=== PATIENT | female | born 1970 | race Caucasian/White ===

== ENCOUNTER 2017-08-05 22:25 | Emergency (ER) | payer OTHER ==
[~2017-08-05] VITALS: Ht 162.6 cm; Wt 110.0 kg
[~2017-08-05 22:25] MED LIST: CHOL50006 PO; FEXO180 PO; SYNT112T PO
[2017-08-05 22:32] VITALS: BP 128/79; PULSE 83; RESP 16; TEMP 98.3; O2SAT 97
[2017-08-06] MEDS ORDERED: FEXO15TA PO (00:30)
[2017-08-06] MEDS ORDERED: SYNT112T PO (00:30)
[2017-08-06] MEDS ORDERED: CHOL5000 PO (00:30)
[2017-08-06] MEDS ORDERED: CYCL10TA PO (00:34)
[2017-08-06] MEDS ORDERED: DICL75TA PO (00:34)
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
[2017-08-06] MEDS ORDERED: NAPROXEN 500 MG TAB PO ONE (00:45)
[2017-08-06] MEDS ORDERED: CYCLOBENZAPRINE HCL 10 MG TAB PO ONE (00:45)
== END 2017-08-06 01:03 | disposition home or self-care (01) ==
LOC: NEPD 22:25
DX: S29.012A Strain of muscle and tendon of back wall of thorax, initial encounter (principal); V89.2XXA Person injured in unspecified motor-vehicle accident, traffic, initial encounter; Y92.481 Parking lot as the place of occurrence of the external cause; E03.9 Hypothyroidism, unspecified; D49.6 Neoplasm of unspecified behavior of brain
CPT/HCPCS: 99283